=== PATIENT | male | born 1990 | race Caucasian/White ===

== ENCOUNTER 2019-05-14 08:34 | Emergency (ER) | payer BC, SELFPAY ==
[2019-05-14 10:50] VITALS: BP 126/76; TEMP 97.8; O2SAT 100
== END 2019-05-14 10:40 | disposition home or self-care (01) ==
LOC: ER 08:34
DX: S00.81XA Abrasion of other part of head, initial encounter (principal); F18.10 Inhalant abuse, uncomplicated; F17.210 Nicotine dependence, cigarettes, uncomplicated; V48.5XXA Car driver injured in noncollision transport accident in traffic accident, initial encounter; Z23 Encounter for immunization
CPT/HCPCS: 96361; 93005; 85025; 80048; 36415; 80320; 80329 ×2; 85610; 80076; 80307 ×8; 85730; 81003; 83690; 70450; 72125; 71260; 74177; 90471; 90714; 96360; 99284; Q9967; J7030